=== PATIENT | male | born 1975 | race Caucasian/White ===

== ENCOUNTER 2018-02-09 04:30 | Emergency (ER) | payer BC, MEDICAID ==
[2018-02-09 04:35] VITALS: TEMP 98.4
--- NOTE | 2018-02-09 05:49 | ED ---
General Adult HPI - General Source: patient, RN notes reviewed Mode of arrival: ambulatory Limitations: no limitations <Arpit Zhogn - Last Filed: 02/09/18 06:16> <Palomo Hernández - Last Filed: 02/09/18 09:30> - General Chief complaint: Psychiatric Symptoms Stated complaint: Mental health Time Seen by Provider: 02/09/18 04:40 - History of Present Illness Initial comments: 42-year-old male presents for evaluation of odd behavior and depression. Patient is brought in by his sister who states that the patient ran out of the house naked, he was searching for his mother. Patient admits that he was having a dream about his mother. His mother was recently diagnosed with terminal cancer, she has only 2 months to live. According to his sister he has been having some bizarre behavior over the past several days. No known history of mental illness. Patient does have family history of bipolar depression in his father. According to his sister he has not slept well the past several days , his primary care physician did prescribed trazodone however secondary to some of his behaviors this medication was discontinued several days ago. Patient has no physical complaints. He is tearful throughout the history. (Arpit Zhong) - Related Data Home Medications Medication Instructions Recorded Confirmed No Known Home Medications [No 02/09/18 02/09/18 Known Home Medications] Allergies Allergy/AdvReac Type Severity Reaction Status Date / Time No Known Allergies Allergy Verified 02/09/18 07:29 Review of Systems ROS Other: All systems not noted in ROS Statement are negative. <Arpit Zhong - Last Filed: 02/09/18 06:16> ROS Other: All systems not noted in ROS Statement are negative. <Palomo Hernández - Last Filed: 02/09/18 09:30> ROS Statement: Those systems with pertinent positive or pertinent negative responses have been documented in the HPI. Past Medical History Past Medical History: No Reported History History of Any Multi-Drug Resistant Organisms: None Reported Past Surgical History: No Surgical Hx Reported Past Psychological History: No Psychological Hx Reported Smoking Status: Current every day smoker Past Alcohol Use History: None Reported Past Drug Use History: None Reported <Arpit Zhong - Last Filed: 02/09/18 06:16> General Exam Limitations: no limitations General appearance: alert, in no apparent distress Head exam: Present: atraumatic, normocephalic Eye exam: Present: normal appearance, PERRL, EOMI ENT exam: Present: normal exam Neck exam: Present: normal inspection. Absent: tenderness, meningismus Respiratory exam: Present: normal lung sounds bilaterally. Absent: respiratory distress, wheezes Cardiovascular Exam: Present: regular rate, normal rhythm GI/Abdominal exam: Present: soft. Absent: distended, tenderness Extremities exam: Present: normal inspection. Absent: full ROM, tenderness Neurological exam: Present: alert, oriented X3, CN II-XII intact. Absent: motor sensory deficit Psychiatric exam: Present: anxious, other (Tearful.) Skin exam: Present: warm, dry, intact. Absent: cyanosis, diaphoretic <Arpit Zhong - Last Filed: 02/09/18 06:16> Course <Arpit Zhong - Last Filed: 02/09/18 06:16> <Palomo Hernández - Last Filed: 02/09/18 09:30> Vital Signs 02/09/18 04:31 Temperature 98.4 F Pulse Rate 102 H Respiratory 20 Rate Blood Pressure 131/79 O2 Sat by Pulse 96 Oximetry EPS evaluation is pending at this point (Palomo Hernández) - Reevaluation(s) Reevaluation #1: 02/09/18 0700 Patient's care is signed out to Dr. Hernández at shift change awaiting EPS disposition (Arpit Zhong) I was informed by EPS for and that they're comfortable sending him home and remained he will follow up according to EPS directions 02/09/18 09:29 (Palomo Hernández) - Lab Data Lab Results 02/09/18 Range/Units 05:41 Urine Opiates Screen Not Detected (NotDetected) Ur Oxycodone Screen Not Detected (NotDetected) Urine Methadone Screen Not Detected (NotDetected) Ur Propoxyphene Screen Not Detected (NotDetected) Ur Barbiturates Screen Not Detected (NotDetected) U Tricyclic Antidepress Not Detected (NotDetected) Ur Phencyclidine Scrn Not Detected (NotDetected) Ur Amphetamines Screen Not Detected (NotDetected) U Methamphetamines Scrn Not Detected (NotDetected) U Benzodiazepines Scrn Not Detected (NotDetected) Urine Cocaine Screen Not Detected (NotDetected) U Marijuana (THC) Screen Not Detected (NotDetected) Disposition <Arpit Zhong - Last Filed: 02/09/18 06:16> <Palomo Hernández - Last Filed: 02/09/18 09:30> Clinical Impression: Depression Disposition: HOME SELF-CARE Condition: Good Instructions: Depression (ED) Referrals: Fang Fleming DO [Primary Care Provider] - 1-2 days
[2018-02-09 06:16] LABS: Amphetamine Screen,Urine Not Detected (NotDetected); Barbiturate Screen,Urine Not Detected (NotDetected); Benzodiazepines Screen,Urine Not Detected (NotDetected); Cocaine Screen,Urine Not Detected (NotDetected); Methadone Screen, Urine Not Detected (NotDetected); Opiate Screen,Urine Not Detected (NotDetected); Oxycodone Screen, Urine Not Detected (NotDetected); Phencyclidine Screen,Urine Not Detected (NotDetected); Tricyclic Antidepressant,Urine Not Detected (NotDetected); Urn Cannabinoid Scrn Not Detected (NotDetected)
[2018-02-09 09:52] VITALS: BP 128/68; PULSE 98; RESP 16
== END 2018-02-09 09:52 | disposition home or self-care (01) ==
LOC: EC 04:30
DX: F32.9 Major depressive disorder, single episode, unspecified (principal); F17.200 Nicotine dependence, unspecified, uncomplicated
CPT/HCPCS: 80306; 82075; 99284

== ENCOUNTER → 2018-02-10 | Outpatient (CLI) | payer BC ==
--- NOTE | 2018-02-10 14:13 | CT ---
EXAMINATION TYPE: CT brain wo con DATE OF EXAM: 02/10/2018 COMPARISON: NONE HISTORY: Transient global amnesia. CT DLP: 1045.2 mGycm. Automated Exposure Control for Dose Reduction was Utilized. TECHNIQUE: CT scan of the head is performed without contrast. FINDINGS: There is no acute intracranial hemorrhage, mass effect, or midline shift identified. No s uspicious extra axial fluid collection. The ventricles and sulci are within normal limits in size. T he globes are intact and the visualized sinuses are clear. IMPRESSION: No acute intracranial hemorrhage, mass effect, or midline shift is seen. MRI could be pe rformed for further evaluation.
== END | disposition home or self-care (01) ==
LOC: RADCTMAIN 13:02
PROVIDERS: ATTEND Physician Assistant
DX: G45.4 Transient global amnesia (principal)
CPT/HCPCS: 70450

== ENCOUNTER → 2021-05-19 | Outpatient (CLI) | payer BC ==
--- NOTE | 2021-05-20 09:19 | XR ---
EXAMINATION TYPE: XR lumbosacral spine min 4V DATE OF EXAM: 05/19/2021 CLINICAL HISTORY: pain COMPARISON: NONE TECHNIQUE: Frontal, lateral, and oblique images of the lumbar spine are obtained. FINDINGS: There are 5 lumbar type vertebral bodies identified. The lumbar spine shows satisfactory alignment without evidence of acute fracture or dislocation. Vertebral body heights are within normal limits. Severe degenerative narrowing L4-5 and L5-S1 with vacuum disc noted. Ventral spondylosis and facet joint arthropathy. The overlying soft tissue appears unremarkable. IMPRESSION: No acute fracture or dislocation is seen in the lumbar spine.ICD 10 NO FRACTURE, INITIAL EVALUATION
--- NOTE | 2021-05-20 09:40 | XR ---
EXAMINATION TYPE: XR sacrum coccyx DATE OF EXAM: 05/19/2021 CLINICAL HISTORY: pain TECHNIQUE: Three views of the sacrum and coccyx are submitted. COMPARISON: None Sacral alae appear symmetric. No evidence for fracture or bony lesion. Sacroiliac joints are within normal limits. Visualized coccygeal segments are free of fracture or lesion. IMPRESSION: Normal study
== END | disposition home or self-care (01) ==
LOC: RADXRYALE 16:21
PROVIDERS: ATTEND Physician Assistant Medical
DX: M53.3 Sacrococcygeal disorders, not elsewhere classified (principal); M54.5 Low back pain
CPT/HCPCS: 72110; 72220

== ENCOUNTER → 2021-08-09 | Outpatient (CLI) | payer BC ==
--- NOTE | 2021-08-09 17:30 | MR ---
EXAMINATION TYPE: MR knee LT wo con DATE OF EXAM: 08/09/2021 COMPARISON: None HISTORY: Pain in left knee Exam performed with no contrast. There is moderately large knee joint effusion. The anterior and posterior cruciate ligaments appear i ntact. There is large horizontal defect through the posterior horn of the medial meniscus extending to the i nferior surface. Lateral meniscus appears fairly normal. The collateral ligaments appear intact. There is no evidence of a fracture. There is minor spurring o f the medial femoral and tibial condyles. The patella is intact IMPRESSION: Large knee joint effusion. Large horizontal tear through the posterior horn of the medial meniscus. No evidence of ligamentous tear.
== END | disposition home or self-care (01) ==
LOC: RADMRIMAIN 07:31
PROVIDERS: ATTEND Family Medicine
DX: M23.322 Other meniscus derangements, posterior horn of medial meniscus, left knee (principal); M25.462 Effusion, left knee

== ENCOUNTER → 2022-09-04 | Outpatient (CLI) | payer BC ==
--- NOTE | 2022-09-04 13:26 | CA ---
Transthoracic Echo Report Name: Wyatt Dejesus Age: 46 Gender: M : 1975 Exam Date: 09/04/2022 12:53 Exam Location: [facility] Ht (in): 66 Wt (lb): 225 Ordering Physician: Nick Eng DO Attending/Referring Phys: Music Composition Teacher Trudy Bell RDCS Procedure CPT: Indications: abn ekg R94.31 Cardiac Hx: Technical Quality: Good Contrast 1: Total Dose (mL): Contrast 2: Total Dose (mL): MEASUREMENTS (Male / Female) Normal Values 2D ECHO LV Diastolic Diameter PLAX 4.2 cm 4.2 - 5.9 / 3.9 - 5.3 cm LV Systolic Diameter PLAX 2.9 cm IVS Diastolic Thickness 1.3 cm 0.6 - 1.0 / 0.6 - 0.9 cm LVPW Diastolic Thickness 1.2 cm 0.6 - 1.0 / 0.6 - 0.9 cm LV Relative Wall Thickness 0.6 RV Internal Dim ED PLAX 3.8 cm LA Systolic Diameter LX 3.8 cm 3.0 - 4.0 / 2.7 - 3.8 cm LA Volume 51.0 cm??? 18 - 58 / 22 - 52 cm??? M-MODE Aortic Root Diameter MM 2.7 cm MV E Point Septal Separation 0.6 cm AV Cusp Separation MM 2.2 cm DOPPLER AV Peak Velocity 140.5 cm/s AV Peak Gradient 7.9 mmHg MV Area PHT 3.8 cm??? Mitral E Point Velocity 82.0 cm/s Mitral A Point Velocity 83.6 cm/s Mitral E to A Ratio 1.0 MV Deceleration Time 201.9 ms MV E' Velocity 10.0 cm/s Mitral E to MV E' Ratio 8.2 TR Peak Velocity 255.2 cm/s TR Peak Gradient 26.1 mmHg Right Ventricular Systolic Press 31.1 mmHg FINDINGS Left Ventricle Left ventricular ejection fraction is estimated at 60-65 %. Left ventricular cavity size normal. Mild concentric left ventricular hypertrophy. Right Ventricle Mild right ventricular dilatation. Right Atrium Normal right atrial size. Left Atrium Normal left atrial size. No evidence for an atrial septal defect. Mitral Valve Structurally normal mitral valve. No mitral stenosis, regurgitation or prolapse. Aortic Valve Trileaflet aortic valve. No aortic valve stenosis or regurgitation. Tricuspid Valve Structurally normal tricuspid valve. Pulmonic Valve Structurally normal pulmonic valve. Pericardium Normal pericardium. No pericardial effusion. Aorta Normal size aortic root and proximal ascending aorta. CONCLUSIONS Normal left ventricular ejection fraction 60-65% Mild left ventricular wall thickness No pericardial effusion Previewed by: Dr. Juan Ma DO (Electronically Signed) Final Date: 04 September 2022 13:25
== END | disposition home or self-care (01) ==
LOC: RADECHMAIN 12:44
PROVIDERS: ATTEND Family Medicine
DX: R94.31 Abnormal electrocardiogram [ECG] [EKG] (principal)
CPT/HCPCS: 93306

== ENCOUNTER → 2023-02-19 | Outpatient (CLI) | payer BC ==
--- NOTE | 2023-02-19 08:37 | MR ---
EXAMINATION TYPE: MR brain wo/w con DATE OF EXAM: 02/19/2023 COMPARISON: CT brain February 10, 2018 HISTORY: Headaches. TECHNIQUE: Multiplanar, multisequence images of the brain and brainstem is performed without and with IV contras t, utilizing 10 mL intravenous Gadavist . FINDINGS: Diffusion weighted images demonstrate no evidence of a recent infarct or other diffusion ab normality. There is no extra-axial fluid collection or significant white matter signal abnormality. The ventricular system and cisternal spaces are normal in size and appearance. The brain volume is age appropriate. Midline structures demonstrate normal morphology. The craniocervical junction appears within normal limits. Post contrast images demonstrate no abnormal enhancement. The dural venous sinuses appear pa tent. The visualized sinuses are clear and the globes are intact. Nasal septum remains deviated to ri ght of midline. IMPRESSION: No suspicious findings seen to account for patient's symptoms.
== END | disposition home or self-care (01) ==
LOC: RADMRIMAIN 07:51
PROVIDERS: ATTEND Family Medicine
DX: G44.009 Cluster headache syndrome, unspecified, not intractable (principal); F31.62 Bipolar disorder, current episode mixed, moderate
CPT/HCPCS: 70553; A9585